=== PATIENT | female | born 1960 | race Asian ===

== ENCOUNTER 2022-12-30 09:51 | Outpatient (CLI) | payer OTHER, MEDICAID, SELFPAY ==
--- NOTE | 2022-12-30 11:05 | P.DIET_ITS ---
Reason for Visit: 88607 E78.5 Person Interviewed: Patient (Iqra Reynoso), Family and Caregiver Medical History, Labs and Background: Pt takes Baby Aspirin and Atorvastatin for high cholesterol. Height: 5 ft 2 in Weight: 162 lb BMI: 26.8 kg/m2 UBW: Pt stated her weight hovers around 146 lbs. IBW: 110 lbs. [facility] about reasonable what for her w/out landing. Weight History: Pt weighed 90 lbs when she got , would like to weigh less. We couldn't choose a reasonable wt for her during out time. Concerns and Goals: Pt. wasn't sure why she was here, but then understood it had to do with her high Cholesterol, HLD. Sleep Hygiene: Pt has a hard time going to sleep - falls asleep the earliest at 11:00 pm, gets up anywhere betwee 7-9 am. Physical Activity: Pt stated she was a runner as a teen and likes to be active, but isn't currently doing anything consistently. She mentioned not liking the cold and possible gym membership somewhere near [facility]. GI Symptoms: Diarrhea Other Feeding Issues: Pt said that she runs to the bathroom after eating oatmeal w/milk because of diarrhea. And she noted that she doesn't like drinking water because it makes her stomach feel full and she has to go to the bathroom a lot. Food Allergies and Sensitivities: Pt said she doesn't have any. Meds, Supplements & Other: Pt said she takes baby aspirin, atorvastatin, and emergenC. 24 Hour Recall: Breakfast Time: 7-9:00 oatmeal or grits or hash browns, tea, 2%milk Snack Time: Lunch Time:10-1:pm salmon, chicken, rice, vegetables Snack Time: Dinner Time: salmon or chicken, rice, vegetables Snack Time: Eating Out: Pt and eat out 3-4x/week. She said she usually gets salad or chicken sandwiches. admitted is is probably 100 lbs overweight and eats what he wants. Soda vs Milk vs Water: Pt said she drinks Sprite occasionally, maybe 2 cups tea/day, and some water. Additional Comments: Pt stated she is not much of a sweets eater, IC maybe 2x/week and doesn't really snack. She does like nuts and chex mix, and eats maybe 7-10 eggs/week. Recommendations: Initially the Pt didn't know why she was here. When HLD was mentioned, she talked about her high cholesterol and mentioned problems in her side of the family with high cholesterol, colon cancer, and DM2. She stated her first cholesterol was 260 and the second was 60 - I don't have access to her labs and so am not sure about that. When discussing her goals, she said she wanted to lose weight and to lower her cholesterol. We discussed what a reasonable weight would be for her, but she kept going back to weighing 90 lbs when she got and so we never settled on an appropriate wt. Her typical daily eating didn't seem excessive, and she is already making changes in how she cooks. Because of the diarrhea after oatmeal we talked about milk sensitivity/lactose intolerance, but she said she likes that it makes her go to the bathroom and she doesn't drink much milk anyway. Fluid intake is low, but she is trying to bake, broil or grill and uses canola or olive oil. They said they are staying away from pork and beef and trying to eat more from the sea. In discussing avoiding trans and saturated fats, we talked about avocadoes and then hummus, both of which they were willing to eat more of in their diet. Talked about the dangers of eating out, but she said she usually gets salads. Also discussed salt and she said she is cutting back. Altered nutrition related value r/t high cholesterol and HLD aeb dietary and hereditary factors. I encouraged the Pt in the good things she is already doing: more salmon and foods from the sea, more grilling/broiling/boiling instead of frying, whole grains instead of simple starches, variety of fruits and vegetables, and liking activity. In discussing changes, we talked about including healthy fats like avocadoes, olive oil, and nuts; drinking more water; doing exercise/activity 20- 30 minutes/day and 3-5x/week; trying to incorporate more beans and less meat into meals; consider trying either almond or oat milk; and paying closer attention to labels - I printed out a handout for labels and showed them where they could find Fat/ Cholesterol/ Sodium etc and how to determine if that food was heart healthy. Finally we walked through a handout on heart healthy nutrition and I asked her to choose foods from the recommended column and avoid ones she was eating in the not recommended column. The Pt seemed motivated and I think hearing her scores and knowing she is making a difference in her health will matter to her. Weight loss could be a natural by-product of these changes, and hopefully she can be content where she lands. Because her eats what he wants, that is a concern, but he also seems to encourage her. Included on the handout was my office number and extension in case she has any questions. I expect compliance as she seems motivated and had already made changes. Coding Level of Care Code Nutrition/Individ/Init 45min Time Spent (min) 45
== END 2022-12-30 09:52 | disposition home or self-care (01) ==
LOC: DIET 09:55
PROVIDERS: PCP Family Medicine; Visit Provider Family Medicine
DX: Z71.3 Dietary counseling and surveillance (principal); E78.5 Hyperlipidemia, unspecified; Z68.26 Body mass index [BMI] 26.0-26.9, adult
CPT/HCPCS: 97802

== ENCOUNTER 2025-03-23 20:01 | Emergency (ER) | payer MEDICAID, SELFPAY ==
--- OUTSIDE RECORDS SUMMARY | 2025-03-23 20:07 | XMS_ITS | Data Portability ---
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 7745631599 76921 M25.552 Osteoarthritis 181323802 M19.90 Hyperlipidemia 68616701 E78.5 [id number] Tucker Alvarenga MD [facility] ([facility]) [address] [place] [address] [phone] 11/30/2023 10:40:44 11/30/2023 13:07:51 Osteoarthritis 054222692 M19.90 Hyperlipidemia 43689805 E78.5 LDL 6 months ago was 88. Recheck 6 months. Continue atorvastat in. [id number] MATT BAUTISTA [facility] ([facility]) [address] [place] [address] [phone] 04/17/2024 14:07:58 04/17/2024 15:59:04 Wasp sting 210083775 T63.461A IM beta administer ed today. Discussed to continue benadryl, elevation, cool compress, and otc anti itch cream. [id number] Tucker Alvarenga MD [facility] ([facility]) [address] [place] [address] [phone] 06/05/2024 09:39:05 06/05/2024 12:29:24 Hyperlipidemia 09718090 E78.5 Osteoarthritis 331463899 M19.90 [id number] Tucker Alvarenga MD [facility] ([facility]) [address] [place] [address] [phone] 11/20/2024 09:37:09 11/21/2024 16:53:54 Osteoarthritis 574200538 M19.90 Pain of le ft hip joint 5134716606 08188 M25.552 Hyperlipidemia 79663849 E78.5 Chronic low back pain 27 6824639 M54.50 Health Concerns Section Related Observation LastModified by Organization Detai ls LastModified Time None Recorded Concern Status LastModified by Organization Details LastModified Time None Recorded Advance Directives Directive None Recorded Payers Insurance Date Sequence Insurance Name Policy Number Policy Pham Covered Member ID Pham Member ID Guarantor Name 11/20/2024 1 [facility] (MEDICAID REPLACEMENT - HMO) [facility] Iqra Leigh Edgardo [id number] Iqra Reynoso 11/20/2024 1 [facility] (MEDICAID HMO) Iqra Leigh Edgardo [id number] Iqra Leigh Edgardo Notes Date Note Type Note Provider Name and Address Organization Details Recorded Time 3 text/html HyperlipidemiaReported bypatient.Duration:chronic Control:usually well controlled Adherence to Treatment Plan:takes medications as prescribedVaginal/Vulvar ProblemReported bypatient.Location:[facility] Duration:present for 1-7 days Quality:vibration sensation. Associated Symptoms:no dysuria;vaginal pain Tucker Alvarenga MD [address] [place] [address] [place], [phone], [facility] 06/01/2023 11:31:23 4 text/html HyperlipidemiaReported bypatient.Duration:chronic Control:usually well controlled Adherence to Treatment Plan:takes medications as prescribed Tucker Alvarenga MD [address] [place], [address], [facility] 11/30/2023 12:04:28 4 text/html walk in patientpatient is here today for wasp sting from a week ago on her right hand that is not getting any better. Continues to have swelling and itching. In the past she's received steroid injections that helped the swelling. MATT BAUTISTA [address] [place], [address], [facility] 04/17/2024 18:02:38 4 text/html HyperlipidemiaReported bypatient.Duration:chronic Control:usually well controlled Adherence to Treatment Plan:takes medications as prescribed Tucker Alvarenga MD [address] [place], [address], [facility] 06/05/2024 10:26:27 5 text/html HyperlipidemiaReported bypatient.Adherence to Treatment Plan:takes medications as prescribed Tucker Alvarenga MD [address] [place], [address], [facility] 11/20/2024 10:09:29 OBGyn Episode No OBEpisode recorded.
[2025-03-23 20:15] VITALS: BP 125/81; PULSE 67; RESP 16; TEMP 36.8; O2SAT 99; BMI 26.5
--- NOTE | 2025-03-23 20:59 | CTR_ITS ---
PROCEDURE INFORMATION: Exam: CT Maxillofacial With Contrast Exam date and time: 03/23/2025 9:18 PM Age: 64 years old Clinical indication: Injury or trauma; Blunt trauma (contusions or hematomas); Orbit/periorbital; Right; Patient struck in RT orbit from a rock flung from a clinical allergist. Reddening of sclera with drainage. ; Additional info: Hyphema TECHNIQUE: Imaging protocol: Computed tomography of the face with contrast. Radiation optimization: All CT scans at this facility use at least one of these dose optimization techniques: automated exposure control; mA and/or kV adjustment per patient size (includes targeted exams where dose is matched to clinical indication); or iterative reconstruction. Contrast material: OMNI 350; Contrast volume: 80 ml; Contrast route: INTRAVENOUS (IV); COMPARISON: No relevant prior studies available. RADIATION DOSE METRICS: Total DLP (mGy-cm): 578.08 FINDINGS: Paranasal sinuses: No air-fluid levels. Orbital cavities: Globes appear intact. No orbital abnormality is evident. Extra-ocular muscles are symmetric. Bones: No acute fracture. Soft tissues: Unremarkable. CT/CT facial bones w con [id number] IMPRESSION: No acute findings.
--- NOTE | 2025-03-23 20:59 | PC.NURSE ---
attempted visual acuity test, attempted with good eye and pt states I'm near sighted and can't see it even with the good eye it's blurry. Kanchan notified.
[2025-03-23] MEDS: iohexol 350 mg/mL 500 mL Btl (per mL) IV (21:21)
--- NOTE | 2025-03-23 21:55 | W.ED.EYEPROB ---
HPI - Eye Problem General: Chief complaint: Eye Problems Stated complaint: right eye injured/ hit by rock mowing Time Seen by Provider: 03/23/25 20:21 History of Present Illness: Selected Entries 03/23/25 20:38 ED Triage Comment pt states she was mowing her yard wa s was hit to right eye with a rock . pt voiced concern d/t having lasix surgery in 1999 . pt has sudconjucta l bleeding noted a nd slight swelling and redness to ey e. reports slight headache and blurr ed vision. Patient had a rock fly up during mowing. This occurred just prior to arrival. She had immediately pain with the right eye, swelling, and redness. Associated symptoms: Reports headache(s); Denies fever(s), nausea or vomiting Related Data Previous Rx's ?Medication ?Instructions ?Recorded polymyxin B sulfate 10,000 1 drp ophthalmic (eye) Q3H #10 mL 03/23/25 unit-trimethoprim 1 mg/mL eye drops Review of Systems General: Reports: 10 or more systems reviewed and unremarkable except in HPI and below Const: Denies: fever(s) or chills Eyes: Reports: change in vision and blurry vision ENMT: Denies: throat pain or dry mouth Card: Denies: chest pain or palpitations Resp: Denies: dyspnea or productive cough GI: Denies: abdominal pain, nausea or vomiting : Denies: flank pain or difficulty voiding Skin/Breast: Denies: rash or pruritus Neuro: Reports: headache(s); Denies: numbness in extremities or weakness in extremities Psych: Denies: anxiety or depression Physical Exam Const: COMMON NORMALS: patient oriented x3 HENMT: COMMON NORMALS: normocephalic and atraumatic HEAD & SCALP: normocephalic and atraumatic Eye: COMMON NORMALS: Equal, round and reactive pupils present and EOMs intact bilaterally GENERAL EYE: normal light reflex SCLERA: scleral abnormal Laterality of scleral abnormality: positive right hemorrhage PUPIL: Yes Equal, round and reactive pupils present DIRECT OPHTHALMOSCOPY: Yes normal light reflex Lymph: LYMPHATIC: no lymphadenopathy noted Chest: COMMONS NORMALS: normal inspection of the chest and normal palpation of entire chest wall Resp: COMMON NORMALS: normal respiratory effort and No retractions Cardio: COMMON NORMALS: regular rate and regular rhythm RATE: regular rate RHYTHM: regular rhythm GI: COMMON NORMALS: Normal to inspection, nondistended, normoactive bowel sounds present and Soft to palpation PALPATION: Yes Soft to palpation : COMMON NORMALS: Yes no CVA tenderness BLADDER/KIDNEY EXAM: Yes no CVA tenderness Back/Pelvis: COMMON NORMALS: no CVA tenderness Extremity: COMMON NORMALS: normal to inspection, full ROM and capillary refill normal Neuro: COMMON NORMALS: patient oriented x3 and CN's II-XII intact bilaterally Psych: COMMON NORMALS: mental status grossly normal and Normal thought process present THOUGHT PROCESS: Normal thought process present Skin: COMMON NORMALS: no rashes or lesions noted and no wounds GENERAL SKIN EXAM: no rashes or lesions noted Course Vital Signs: Vital signs: Vital Signs Temperature 98.3 F 03/23/25 20:15 Pulse Rate 67 03/23/25 20:15 Respiratory Rate 16 03/23/25 20:15 Blood Pressure 125/81 03/23/25 20:15 Pulse Oximetry 99 03/23/25 20:15 Oxygen Delivery Me thod Room Air 03/23/25 20:15 MDM - Eye Problem Medical Decision Making Attempted visual acuity test, however patient was equally having issues with the visual acuity. She then noted that she was nearsighted, even though she is status post Lasix correction surgery. Proceeded with CT of the ocular bed to ensure there was no additional concern of infiltrated ocular red, which was not the case and there was no foreign body. This appears straightforward to be a subconjunctival injection hematoma not associated with hyphema which was my major concern. Patient will follow-up and call on Tuesday to see an eye doctor to review the back of her eyes. She states understanding. All questions answered to her understanding Lab Data Radiology Impressions Face CT 03/23/25 20:59 IMPRESSION: No acute findings. All radiology interpretation(s) finalized by discharge ED provider radiology interpretation(s): no acute Discharge Plan Discharge Patient Disposition: Home Clinical Impression: SCOUT (subconjunctival hemorrhage) Qualifiers: Laterality: right Qualified Code(s): H11.31 - Conjunctival hemorrhage, right eye Condition: Stable Prescriptions: New polymyxin B sulf-trimethoprim 10,000 unit- 1 mg/mL drops 1 drp ophthalmic (eye) Q3H Qty: 10 0RF Rx Instructions: while awake; do not exceed 6 doses in 24 hours Discharge Orders: Discharge ED (Routine); Ordered 03/23/25 Ordered By: Jessica Hemphill Referrals: Tucker Alvarenga MD [Primary Care Provider, [facility]] Discharge Diet: Usual diet Discharge Activity: Resume usual activity Patient Instructions: Subconjunctival Hemorrhage, Patient Portal & Marcin Instructions Activity Restrictions/Additional Instructions: Go to an eye doctor first next week. Call on Tuesday to be seen. Take eyedrops as prescribed. Wear eye protection Return to ED for nausea, ongoing vomiting, neurological changes, headache that will not go away or worsening eye pain, blurry vision Tylenol as best for pain Print Language: Portuguese Coding Level of Care Code ED Corporate Communications Associate for Tae Lainez
--- NOTE | 2025-03-25 10:01 | DCPLANNER ---
faxed chart to [facility] for er f/u
== END 2025-03-23 23:05 | disposition home or self-care (01) ==
PROVIDERS: Emergency Provider Physician Assistant; PCP Family Medicine
DX: H11.31 Conjunctival hemorrhage, right eye (principal)
CPT/HCPCS: 70487; 99285